=== PATIENT | male | born 1985 | race Hispanic/Latino ===

== ENCOUNTER 2021-08-20 16:08 | Emergency (ER) | payer OTHER ==
[~2021-08-20] VITALS: Ht 172.7 cm; Wt 70.3 kg
[2021-08-20] MEDS ORDERED: BENZ-39 PO (19:14)
[2021-08-20] MEDS ORDERED: CETI10CA5 PO (19:14)
[2021-08-20] MEDS ORDERED: MAGIC240 MM (19:15)
[2021-08-20 19:55] VITALS: BP 122/72
== END 2021-08-20 20:00 | disposition home or self-care (01) ==
LOC: EDH 16:08
DX: U07.1 COVID-19 (principal)
CPT/HCPCS: 87635; 87804 ×2; 87880; 99283; C9803